=== PATIENT | female | born 1995 ===

== ENCOUNTER 2024-10-10 08:27 | Day surgery (SDC) | payer OTHER ==
[~2024-10-10] VITALS: Ht 165.1 cm; Wt 98.0 kg
[~2024-10-10 08:27] MED LIST: Lactated Ringer's 1,000 ML IV ONE; Lactated Ringer's 1,000 ML ONE; propofoL 50 ML IV ONE
[2024-10-10] MEDS ORDERED: Lactated Ringer's 1,000 ML IV ONE ×2 (09:37→10:04)
== END 2024-10-10 10:59 | disposition home or self-care (01) ==
LOC: ORSCSDS 08:27
PROVIDERS: Internal Medicine Gastroenterology
PROC: 0DJD8ZZ Inspection of Lower Intestinal Tract, Via Natural or Artificial Opening Endoscopic (ICD-10-PCS; principal; 2024-10-10 09:45)
DX: K62.5 Hemorrhage of anus and rectum (principal); K59.09 Other constipation; Z79.3 Long term (current) use of hormonal contraceptives
CPT/HCPCS: J2704; J7120